=== PATIENT | male | born 1985 | race Caucasian/White ===

== ENCOUNTER 2023-02-23 12:02 | Emergency (ER) | payer MEDICAID ==
[~2023-02-23] VITALS: Ht 177.8 cm; Wt 68.2 kg
[2023-02-23] MEDS ORDERED: ALBU18HF12 IH (12:10)
[2023-02-23] MEDS ORDERED: HYDROCODONE/ACETAMINOPHEN 5-325 MG TABLET PO ONE (15:45)
[2023-02-23 16:41] LABS: ANION GAP 8 mmol/L (8-16); CALCIUM, TOTAL 9.2 mg/dL (8.8-10.5); CARBON DIOXIDE 28 mmol/L (22-29); CHLORIDE 104 mmol/L (98-107); CREATININE 0.88 mg/dL (0.60-1.30); GLOMERULAR FILTR. RATE CALC > 60 mL/min (>60); GLUCOSE,RANDOM 91 mg/dL (70-110); POTASSIUM 3.5 mmol/L (3.5-5.1); SODIUM SERUM 140 mmol/L (136-145); UREA NITROGEN, BLOOD 9 mg/dL (7-18)
[2023-02-23 16:47] LABS: ALANINE AMINOTRANSFERASE 22 U/L (12-78); ALBUMIN 4.1 g/dL (3.4-5.0); ALKALINE PHOSPHATASE 65 U/L (46-116); ASPARTATE AMINOTRANSFERASE 15 U/L (15-37); BILIRUBIN,TOTAL 0.5 mg/dL (0.1-1.0); TOTAL PROTEIN, SERUM 6.6 g/dL (6.4-8.2)
[2023-02-23 16:54] LABS: BASOPHILS % (AUTO) 0.5 % (0.0-2.0); EOSINOPHILS % (AUTO) 9.4 % (1.0-6.0); HEMATOCRIT 45.3 % (41-53); HEMOGLOBIN 15.5 g/dL (13.5-17.5); LYMPHOCYTES # (AUTO) 1.8 K/uL (1.0-4.8); LYMPHOCYTES % (AUTO) 28.9 % (22.0-44.0); MEAN CORPUSCULAR HEMOGLOBIN 29.9 pg (26.0-34.0); MEAN CORPUSCULAR HGB CONC 34.3 G/dL (31.0-37.0); MEAN CORPUSCULAR VOLUME 87 fL (80-100); MONOCYTES # (AUTO) 0.5 K/uL (0.1-1.0); MONOCYTES % (AUTO) 8.3 % (2.0-9.0); NEUTROPHILS # (AUTO) 3.3 K/uL (1.8-7.7); NEUTROPHILS % (AUTO) 52.9 % (40.0-70.0); PLATELET COUNT (AUTO) 177 K/uL (150-450); RED BLOOD CELL COUNT(AUTO) 5.19 MIL/uL (4.50-5.90); RED CELL DISTRIBUTION WIDTH 13.4 % (11.5-14.5); WHITE BLOOD COUNT (AUTO) 6.3 K/uL (4.5-11.0)
[2023-02-23 17:52] VITALS: BP 118/56; PULSE 84; RESP 16; TEMP 97.9
== END 2023-02-23 17:53 | disposition left against medical advice (07) ==
LOC: EMS 12:03
DX: R53.1 Weakness (principal); G35 Multiple sclerosis; F12.90 Cannabis use, unspecified, uncomplicated
CPT/HCPCS: 70450; 80053; 85025; 99284; 99285

== ENCOUNTER 2023-11-12 22:32 | Emergency (ER) | payer MEDICAID ==
[~2023-11-12 22:32] MED LIST: ALBU18HF12 IH
== END 2023-11-13 01:44 | disposition home or self-care (01) ==
LOC: EMS 22:32
DX: R07.89 Other chest pain (principal); G35 Multiple sclerosis; F12.90 Cannabis use, unspecified, uncomplicated
CPT/HCPCS: 71046; 99283